=== PATIENT | male | born 1965 | race Caucasian/White ===

== ENCOUNTER → 2024-04-20 07:35 | Outpatient (REF) | payer BC, SELFPAY | LOC: RAD 07:35 | PROVIDERS: ATTENDING PHYSICIAN Family Medicine; FAMILY PHYSICIAN Family Medicine | DX: M79.661 Pain in right lower leg (principal) | CPT/HCPCS: 93971 ==

== ENCOUNTER 2024-04-20 08:53 | Emergency (ER) | payer BC, SELFPAY ==
[2024-04-20 08:55] VITALS: BP 145/87
--- NOTE | 2024-04-20 09:05 | ED.GENMED ---
History of Present Illness
<Conner Watters Jr., PA-C - Last Filed: 04/20/24 11:15>
General
Chief Complaint: DVT/Possible Blood Clot
Source: patient
Exam Limitations: none
Time Seen by Provider: 04/20/24 09:05
Nursing documentation reviewed up to this point in time: agreed with
History of Present Illness
History of Present Illness:
58-year-old male presenting to the emergency department today with concerns of DVT found in the right lower extremity with outpatient ultrasound. Also diagnosed with COVID upper respiratory symptoms over the past 2 days. Denies any chest pain
shortness of breath. No history of blood clots no recent trauma surgery immobilization, smoking history, estrogen product usage.
Past History
<Parminder Palma DO - Last Filed: >
Past History
ED Past Medical History: None
ED Past Surgical History: None
Social History
Tobacco: Non-smoker
Review of Systems
<Conner Watters Jr., PA-C - Last Filed: 04/20/24 11:15>
Review of Systems
Allergies reviewed?: Yes
All Other Systems: ROS reviewed and negative except as documented in HPI and ROS
Phy Exam
<MAGI Curry Jr. Last Filed: 04/20/24 11:15>
Physical Exam
Physical Exam:
GENERAL: Alert , in no apparent distress
EYE: pupils equal and reactive
NECK: Supple, no significant adenopathy.
ENT: o/p clr, mmm.
CARDIAC: Regular rate and rhythm .
LUNGS: Clear breath sounds bilaterally, no acute respiratory distress, no wheezes/rales/rhonchi
ABDOMEN: Soft, without focal tenderness, no r/g, no cvat
NEUROLOGICAL: Alert and oriented, no focal neuro deficits
SKIN: Warm and dry, skin intact.
MUSCULOSKELETAL: Edema to the right lower extremity from the knee distally. Good distal pulses, well perfused.
PSYCH: Normal and appropriate interaction.
Course
<Conner Watters Jr., PA-C - Last Filed: 04/20/24 11:15>
Orders/Labs/Results
Orders:
Orders
04/20/24 09:21
Apixaban [Eliquis] 10 mg PO ONCE ONE
04/20/24 09:54
CBC/With Diff [Complete Blood Count/With Diff] Urgent
CMP [Comprehensive Metabolic Panel] Urgent
Abnormal Lab Results
04/20/24
09:54
MCH 31.4 H pg
(27.0-31.0)
MPV 11.5 H fL
(7.4-10.4)
Absolute Monos (auto) 0.7 H 10^3/uL
(0.1-0.6)
Lymphocytes % 18.8 L %
(20.5-51.1)
Monocytes % 11.1 H %
(1.7-9.3)
Glucose 247 H mg/dl
(70-99)
04/20/24 09:54
04/20/24 09:54
Vital Signs
Initial and Last Documented VS:
Initial Vital Signs
Temp Pulse Resp BP Pulse Ox
98.7 F 85 16 145/87 100
04/20/24 08:55 04/20/24 08:55 04/20/24 08:55 04/20/24 08:55 04/20/24 08:55
Last Documented Vital Signs
Temp Pulse Resp BP Pulse Ox
98.7 F 85 16 145/87 100
04/20/24 08:55 04/20/24 08:55 04/20/24 08:55 04/20/24 08:55 04/20/24 08:55
<Parminder Mau Schladenhaufen, DO - Last Filed: >
Orders/Labs/Results
Orders:
Orders
04/20/24 09:21
Apixaban [Eliquis] 10 mg PO ONCE ONE
04/20/24 09:54
CBC/With Diff [Complete Blood Count/With Diff] Urgent
CMP [Comprehensive Metabolic Panel] Urgent
Abnormal Lab Results
04/20/24
09:54
MCH 31.4 H pg
(27.0-31.0)
MPV 11.5 H fL
(7.4-10.4)
Absolute Monos (auto) 0.7 H 10^3/uL
(0.1-0.6)
Lymphocytes % 18.8 L %
(20.5-51.1)
Monocytes % 11.1 H %
(1.7-9.3)
Glucose 247 H mg/dl
(70-99)
04/20/24 09:54
04/20/24 09:54
Vital Signs
Initial and Last Documented VS:
Initial Vital Signs
Temp Pulse Resp BP Pulse Ox
98.7 F 85 16 145/87 100
04/20/24 08:55 04/20/24 08:55 04/20/24 08:55 04/20/24 08:55 04/20/24 08:55
Last Documented Vital Signs
Temp Pulse Resp BP Pulse Ox
98.7 F 85 16 145/87 100
04/20/24 08:55 04/20/24 08:55 04/20/24 08:55 04/20/24 08:55 04/20/24 08:55
<Conner Watters Jr., PA-C - Last Filed: 04/20/24 11:15>
MDM/Problems Addressed
MDM/Problems Addressed:
58-year-old male presenting to the emergency department today with concerns of right lower extremity DVT found on outpatient ultrasound. No chest pain shortness of breath. Also has had some mild upper respiratory symptoms over the past 2 days
tested positive for on arrival vital signs are normal other than slightly elevated blood pressure. Patient does have swelling to the right leg with good distal pulses and cap refill. Plan to start patient on Eliquis. No signs or symptoms
consistent with PE. Patient's labs show glucose of 247. He was told that he has borderline diabetes by primary care doctor. Does plan on following up closely. This was a nonfasting number. He was advised to increasing water significantly
decreased carbohydrate intake and follow-up within the next week or 2 for reassessment if he needs additional medications for possible diabetes. Otherwise the patient was started on Eliquis and will follow-up closely as an outpatient for this.
<Conner Watters Jr., PA-C - Last Filed: 04/20/24 11:15>
*Critical Care Note
Total Time (30-74mins, 75-104mins- exclusive of procedures): Not Applicable
ED Attending Note
<Parminder Palma DO - Last Filed: >
-
Portions of this chart may have been created with voice recognition software.� Occasional wrong word or��sound alike� substitutions may have occurred due to the inherent limitations of voice recognition software.
Discharge Plan
Departure
Patient Disposition: Home (Routine Discharge)
Date of Disposition: 04/20/24
Time of Disposition: 11:13
Patient with high blood pressure during this ER visit?: No
Condition: Good
Covid-19: Not Applicable
Discharge Problem:
DVT (deep venous thrombosis), Hyperglycemia
Instructions: Deep Vein Thrombosis (Blood Clots in the Legs) (DC), Diabetes and diet
Prescriptions:
New
Eliquis DVT-PE Treat 30D Start 5 mg (74 tabs) tablets,dose pack
See Rx Instructions .ROUTE .COMPLEX Qty: 74 0RF
Rx Instructions:
orally per package directions
Referrals:
Pina Root MD [Family Provider] -
Shaquille Thompson MD [Active] -
Activity Restrictions/Additional Instructions:
You came to the emergency department today with concerns of blood clot to your right leg. You are started on Eliquis. Please take this medication as prescribed and follow-up closely as an outpatient with hematology primary care doctor.
Additionally your sugar level was elevated in the mid 240s. Please drink plenty of water and decrease carbohydrate intake. Please follow-up closely with your primary care doctor for further assessment of this. Return to the emergency department
any worsening, new or concerning symptoms.
Interventions
Interventions:
*Risk Screen - Suicide Last Done: 04/20/24 08:55
*General Assessment Last Done: 04/20/24 08:55
*Neglect/Abuse Screening Last Done: 04/20/24 08:55
ED- Fall Risk Assessment Last Done: 04/20/24 09:19
*ED COVID-19 Vaccine History Last Done: 04/20/24 08:55
ED- Cardiac Assessment Last Done: 04/20/24 10:08
ED- Pulmonary Assessment Last Done: 04/20/24 09:19
ED-Peripheral Vascular Assessment Last Done: 04/20/24 10:06
ED-Skin Assessment Last Done: 04/20/24 10:06
Discharge Date and Time
Print Language: MOZAMBICAN
[2024-04-20 09:22] VITALS: BMI 30.8
[2024-04-20] MEDS: ELIQUIS 10 MG PO (09:55)
[2024-04-20 10:08] LABS: % Basophils 0.7 % (0-2); % Immature Granulocytes 0.2 % (0-0.5); % Lymphocytes 18.8 % (20.5-51.1); % Monocytes 11.1 % (1.7-9.3); % Neutrophils 68.2 % (42.2-75.2); Absolute Eosinophils 0.1 10^3/uL (0-0.7); Absolute Lymphocytes 1.2 10^3/uL (1.2-3.4); Absolute Monocytes 0.7 10^3/uL (0.1-0.6); Absolute Neutrophils 4.2 10^3/uL (1.4-6.5); Hematocrit 43.4 % (39.0-52.0); Hemoglobin 14.8 g/dL (13.0-18.0); Mean Corp Hgb Conc. 34.1 g/dL (33.0-37.0); Mean Corpuscular Hgb 31.4 pg (27.0-31.0); Mean Corpuscular Volume 91.9 fL (80.0-94.0); Mean Platelet Volume 11.5 fL (7.4-10.4); Nucleated Red Blood Cells % 0 % (-); Platelet Count 195 10^3/uL (130-400); Red Blood Cell Count 4.72 10^6/uL (4.70-6.10); Red Cell Dist. Width 11.6 % (11.5-14.5); White Blood Cell Count 6.1 10^3/uL (4.8-10.8)
[2024-04-20 10:25] VITALS: BP 145/84
[2024-04-20 10:26] LABS: ALT (SGPT) 24 U/L (0-50); AST (SGOT) 20 U/L (17-59); Albumin 4.2 g/dl (3.5-5.0); Alkaline Phosphatase 65 U/L (38-126); Blood Urea Nitrogen 11 mg/dl (9-20); Calcium 9.4 mg/dl (8.4-10.2); Carbon Dioxide 24 mmol/L (22-30); Chloride 104 mmol/L (98-107); Estimated Creatinine Clearance 125 ml/min; Glucose 247 mg/dl (70-99); Potassium 4.4 mmol/L (3.5-5.1); Sodium 140 mmol/L (135-145); Total Bilirubin 1.3 mg/dl (0.2-1.3); Total Protein 6.8 g/dl (6.3-8.2); eGFR > 60.00
[2024-04-20 12:01] VITALS: BP 142/82
== END 2024-04-20 12:02 | disposition home or self-care (01) ==
LOC: EMR 08:53
PROVIDERS: Physician Assistant; EMERGENCY PHYSICIAN Emergency Medicine; FAMILY PHYSICIAN Family Medicine
DX: I82.401 Acute embolism and thrombosis of unspecified deep veins of right lower extremity (principal); U07.1 COVID-19; R73.9 Hyperglycemia, unspecified; R73.03 Prediabetes
CPT/HCPCS: 99283; 80053; 85025